=== PATIENT | male | born 1995 | race Caucasian/White ===

== ENCOUNTER 2017-04-21 09:12 | Emergency (ER) | payer MEDICAID ==
[~2017-04-21] VITALS: Ht 175.3 cm; Wt 94.5 kg
[2017-04-21 09:15] VITALS: BP 147/81
[2017-04-21] MEDS ORDERED: CARBAMIDE PEROXIDE EAR DROPS 6.5%, 15ML ONE (09:29)
[2017-04-21] MEDS ORDERED: CARBAMIDE PEROXIDE EAR DROPS 6.5%, 15ML EACH EAR ONE (09:30)
== END 2017-04-21 10:57 | disposition home or self-care (01) ==
LOC: ED 10:47
DX: H61.23 Impacted cerumen, bilateral (principal)
CPT/HCPCS: 69209; 99282

== ENCOUNTER 2017-10-05 17:18 | Emergency (ER) | payer MEDICAID ==
[~2017-10-05] VITALS: Ht 182.9 cm; Wt 95.8 kg
[2017-10-05 17:21] VITALS: BP 141/92
[2017-10-05] MEDS ORDERED: CARBAMIDE PEROXIDE EAR DROPS 6.5%, 15ML ONE (17:51)
[2017-10-05] MEDS ORDERED: CARBAMIDE PEROXIDE EAR DROPS 6.5%, 15ML RIGHT EAR ONE (18:00)
== END 2017-10-05 19:28 | disposition home or self-care (01) ==
LOC: ED 19:22
DX: H61.21 Impacted cerumen, right ear (principal)
CPT/HCPCS: 69210

== ENCOUNTER 2019-03-12 19:02 | Emergency (ER) | payer MEDICAID ==
[~2019-03-12] VITALS: Ht 180.3 cm; Wt 84.7 kg
[2019-03-12 19:08] VITALS: BP 137/86
[2019-03-12] MEDS ORDERED: CARBAMIDE PEROXIDE EAR DROPS 6.5%, 15ML ONE (19:27)
[2019-03-12] MEDS ORDERED: CARBAMIDE PEROXIDE EAR DROPS 6.5%, 15ML LEFT EAR ONE (19:30)
--- NOTE | 2019-03-12 19:43 | NUR ---
REPORT TAKEN FROM CHRISTIANO DANGELO
--- NOTE | 2019-03-12 20:25 | NUR ---
EDT AT BEDSIDE FOR EAR IRRIGATION .
--- NOTE | 2019-03-12 20:35 | NUR ---
EAR IRRIGATION COMPLETED, REESE REED AT BEDSIDE TO REPEAT EAR EXAM.
--- NOTE | 2019-03-12 20:52 | NUR ---
PT GIVEN DC INSTRUCTIONS AND SCRIPT, EDUCATED REGARDING RX FOR CORTOSPORIN EAR DROPS. PT A&O, RESPS EVEN AND UNLABORED, NADN AT DC. PT AMB TO DC DESK WITH STEADY GAIT, NADN AT DC.
== END 2019-03-12 20:49 | disposition home or self-care (01) ==
LOC: ED 20:15
DX: H61.21 Impacted cerumen, right ear (principal); H65.02 Acute serous otitis media, left ear; H60.502 Unspecified acute noninfective otitis externa, left ear
CPT/HCPCS: 69209; 99283